=== PATIENT | female | born 1975 | race Asian ===

== ENCOUNTER 2017-03-25 12:57 | Outpatient (CLI) | payer OTHER ==
--- NOTE | 2017-03-25 14:18 | Diagnostic Imaging Report ---
Indication: COUGH Technique: Single PA view of the chest. Findings: Comparison: None. Small metallic densities project over the midline lower cervical spine. The bones and extra pulmonary soft tissues, cardiomediastinal silhouette, pulmonary vasculature and parenchyma, and pleural surfaces are otherwise unremarkable. IMPRESSION: Neck base metallic densities may represent external artifact. Correlate clinically. Otherwise negative PA chest radiograph.
== END 2017-03-25 14:57 | disposition home or self-care (01) ==
LOC: RAD 12:57
DX: R05 Cough (principal)
CPT/HCPCS: 71020